=== PATIENT | male | born 1965 | race African-American/Black ===

== ENCOUNTER 2017-03-21 10:11 | Day surgery (SDC) | payer BC ==
[~2017-03-21] VITALS: Ht 188 cm; Wt 106.2 kg
[~2017-03-21 10:11] MED LIST: LISI-360 PO
[2017-03-21] MEDS ORDERED: IOHEXOL 350 MG/ML 50 ML BTL (for Cath Lab) OTHER ONE (10:12)
[2017-03-21 10:52] VITALS: BP 159/101; PULSE 58; RESP 18; TEMP 97.8; O2SAT 99
[2017-03-21] MEDS ORDERED: ASPIRIN 81 MG CHEW TAB PO SCH (11:00)
[2017-03-21 11:14] LABS: AUTOMATED NEUTROPHIL # 3.8 TH/MM3 (1.8-7.7); BASOPHIL # 0.1 TH/MM3 (0-0.2); BASOPHIL % 1.2 % (0.0-2.0); EOSINOPHIL # 0.4 TH/MM3 (0-0.4); EOSINOPHIL % 5.4 % (0.0-4.0); HEMATOCRIT 48.2 % (39.0-51.0); HEMO FLAGS DIFF FINAL; LYMPH % 36.5 % (9.0-44.0); LYMPHOCYTE # 2.7 TH/MM3 (1.0-4.8); MEAN CELL VOLUME 93.1 FL (80.0-100.0); MEAN CORPUSCULAR HEMOGLOBIN 31.6 PG (27.0-34.0); MEAN CORPUSCULAR HGB CONC 33.9 % (32.0-36.0); MONO % 6.6 % (0.0-8.0); NEUT % 50.3 % (16.0-70.0); PLATELET COUNT 189 TH/MM3 (150-450); RED BLOOD COUNT 5.18 MIL/MM3 (4.50-5.90); RED CELL DISTRIBUTION WIDTH 12.9 % (11.6-17.2); WHITE BLOOD COUNT 7.5 TH/MM3 (4.0-11.0)
[2017-03-21] MEDS ORDERED: ASPI-516 CHEW (11:19)
[2017-03-21] MEDS ORDERED: ACYC800T PO (11:19)
[2017-03-21] MEDS ORDERED: LISI-515 PO (11:19)
[2017-03-21] MEDS ORDERED: ISOS30TA3 PO (11:19)
[2017-03-21] MEDS ORDERED: IBUP1TAB7 PO (11:19)
[2017-03-21 11:23] LABS: APTT (PATIENT) 26.3 SEC (24.3-30.1); PROTHROMBIN TIME - PATIENT 11.1 SEC (9.8-11.6)
[2017-03-21 11:31] LABS: BICARBONATE 27.2 MEQ/L (21.0-32.0)
[2017-03-21] MEDS ORDERED: HEPARIN-NS/PF INJ 500 ML ONE (14:03)
[2017-03-21] MEDS ORDERED: MIDAZOLAM HCL 2 MG/2 ML VIAL ONE (14:17)
--- NOTE | 2017-03-21 14:58 | CATHPROC ---
[facility] HIS Report Study Information Study Number Admission Scheduled Start Study Start [id number] Mar 21 2017 10:11AM 03/21/2017 Mar 21 2017 2:01PM [place] [facility] Cardiac Catheterization Admit Source Facility Department Other [facility] Physician and Clinical Staff Initial Tan Wei Dry Room Operator Manuel Spain,GEORGE Recorder Sherice Swanson,RT(R) (BS) Scrub Toya ToledoRT(R) Procedures Performed Procedure Location (Site) Vessel Name Coronary Angiograms LCA Left Coronary Coronary Angiograms RCA Right Coronary LV Gram-hand inj. LV LV Ventricle Equipment Time Train System Operator Description Size Mfg Part Number Used/Scraped CATHETER, FR5 SWAN MCKAYLA 14:18 [employer] FR 5 [id number] *[id number] Used MONITOR TRANSDUCER, TRUWAVE [id number] 14:10 CARSON RASMUSSEN * Used W/STOCKCOCK *[id number] [id number] *[id number] [id number] *[id number] 14:18 [employer] PACK, CCL CUSTOM * Used *[id number] 14:10 [employer] PACER PEN, SKIN DUAL W/ RULER * Used *[id number] 14:18 [employer] MEDICAL SHEATH, FR5.5 PRELUDE 11CM FR 5.5 Used 038ACT# [id number] 14:18 [employer] MEDICAL WIRE, 3MMJ .035 180CM 180CM Used *[id number] 14:18 NAMIC MANIFOLD, 4 PORT * Used *[id number] 14:18 [employer] OMNIPAQUE, 350 MG, 150ML 150ML [id number] Used 14:10 [employer]ED OMNIPAQUE, 350 MG, 150ML 150ML [id number] Used [id number] 14:18 [employer],WARM AIR CCL * Used *[id number] 14:10 TERUM[employer] MEDICAL SHEATH, FR4 TERUMO (10CM) FR 4 Used *[id number] History: Current Medications Medication Dosage/Unit Route Frequency Last Date/Time Taken ASA NTG Patch History: Allergies Allergy Reaction No Known Allergies History: Risk Factors Family History of Hypertension Dyslipidemia Previous [facility] Previous Heart Failure Premature CAD Yes No No No No Prior Valve Prior PCI Prior CABG Surgery No No No Cerebrovascular Peripheral Artery Chronic Lung On Dialysis Diabetes Disease Disease Disease No No No No No History: Stress Tests Stress or Imaging Studies Performed Yes Standard Exercise Stress Test No Stress Echo No Stress Test SPECT Stress Test SPECT Result Yes Indeterminant Stress Test CMR No Cardiac CTA Coronary Calcium Score No No History: Other Current Smoker Method Packs a Day Years Used Pack Years Yes Cigarettes 1 33 33 Labs Hgb (g/dl) Hct (%) WBC (l/cumm) Platelets (thousands) 11.60-17.00 35.00-51.00 4.00-11.00 150.00-450.00 16.4 48.2 7.5 189 Glucose (mg/dl) BUN (mg/dl) Creatinine (mg/dl) BUN:Creatinine (1:x) 74.00-106.00 7.00-18.00 0.50-1.30 10.00-20.00 86 15 0.8 18.8 Na (meq/l) K (meq/l) 136.00-145.00 3.50-5.10 139 4 INR (PTT:PT) 0.90-1.10 1 CPK-MB (ng/ML) 0.50-3.60 Not Drawn Medication Medication Total Dose (Bolus/Oral) Medication Total Dosage/Unit 1% XYLOCAINE 20 mL FENTANYL 25 mcg VERSED 1 mg Medications (Bolus/Oral) Medication Time Given Dosage/Unit Administered By Reason VERSED 03/21/2017 2:20:57 PM 1 mg Manuel Spain 1 mg VERSED given in lab by Manuel Spain, GEORGE in Left Antecubital via Peripheral IV. 1% XYLOCAINE 03/21/2017 2:23:20 PM 20 mL Tan Florence 20 mL 1% XYLOCAINE given in lab by Tan Florence in Right Groin via Subcutaneous. FENTANYL 03/21/2017 2:25:01 PM 25 mcg Manuel Spain 25 mcg FENTANYL given in lab by Manuel Spain, GEORGE in Left Antecubital via Peripheral IV. Medication (Drip) Medication Time Given Dosage/Unit Concentration/Unit Diluent (ml) Solutio n IV Solutions 03/21/2017 2:02:18 PM 0 mL (IV) 500 NaCl .9 IV Solutions given in lab by Manuel Spain, GEORGE in Left Antecubital via Peripheral IV. Pump/Drip Flow = 30 ml/hr using NaCl .9. Initial Case Assessment Cardiovascular HR Rhythm NIBP 62 reg 150/95 Edema Present Skin color Skin None Normal Warm Dry Circulatory - Right Pulses Dorsalis Pedis Femoral Radial 2 2 2 Scale (0,1,2,3,4,d) Scale (0,1,2,3,4,d) Circulatory - Lower Extremities Color Lower Right Color Lower Left Normal Normal Neurological State Oriented to time-place- Alert Moves all extremities person Respiration - General Respiration Rate SpO2 (%) (B/min) 10 100 Chronological Log Time Study Chronological Log 13:55:38 Patient arrived via Bed. 13:55:45 Patient Name, D.O.B, / Armband Verified By R.N. 13:55:48 Consent signed by the physician and the patient and verified by the [facility] staff. Vitals capture started with the following parameters, Patient=Adult, Interval=5 min, Initial Brbvfayp=191 mmHg, 14:01:29 Deflation Rate=5 mmHg, Cuff placed on Left Arm 14:01:53 Pre-op and post- op instructions given; patient acknowledges understanding of instruction s. Verbal Stimulation=2 Physical Stimulation=2 Airway=~AIRWAY~ Respiration=2 TOTAL=8. (0=absent, 1 =limited, 14:01:54 2=present) 14:01:55 Presedation assessment performed by [facility] RN. 14:02:04 Patient has been NPO for More than 6Hrs. 14:02:05 Skin Breakdown none per pt 14:02:06 HR=65 bpm, CZJS=099/95 mmhg, DdZ3=582.0 %, Resp=8 B/min, Pain=0, Corey=10, Durán=2 14:02:06 Patient Warmer Placed on the Table. 14:02:15 [place]on Prominences Protected 14:02:17 A # 20 IV was noted in the Antecubital (left). Grade = 0 IV Solutions given in lab by Manuel Spain, GEORGE in Left Antecubital via Peripheral IV. Pump/Dri p Flow = 30 ml/hr using 14:02:18 NaCl .9. 14:02:19 History and physical on the chart or being dictated. Assessment: Initial Case, HR=62 BPM, Rhythm=reg, ASDP=783/95 mmhg, Edema=None, Color=Normal, Sk in = Warm, Dry Right Pulses: Cheikh Ped=2, Femoral=2, Radial=2 14:02:20 Lower Right Extremities: Color=Normal Lower Left Extremities: Color=Normal Neurological: State=Alert, Ox3, CONDE Respiration: Resp=10 B/min, JrX1=458 % 14:07:09 HR=59 bpm, RCFJ=454/88 mmhg, SpO2=99.0 %, Resp=11 B/min, Pain=0, Corey=10, Durán=2 14:08:53 Reference ECG taken 14:11:47 Bilateral groins prepped with 2% chlorhexidine, and draped after a 3 minute waiting time. 14:13:32 HR=64 bpm, QEKU=747/95 mmhg, FeK4=545.0 %, Resp=8 B/min, Pain=0, Corey=10, Durán=2 14:16:52 MD paged 14:17:46 HR=62 bpm, FXDE=091/97 mmhg, RhQ6=562.0 %, Resp=9 B/min, Pain=0, Corey=10, Durán=2 14:19:47 MD arrived. 14:20:57 1 mg VERSED given in lab by Manuel Spain, RN in Left Antecubital via Peripheral IV. 14:21:23 Pressure channel 1 zero failed. 14:21:47 Pressure channel 1 zeroed. 14:22:13 HR=62 bpm, VJOQ=704/91 mmhg, ZjP1=698.0 %, Resp=15 B/min, Pain=0, Corey=10, Durán=2 Time Out. Correct patient, correct procedure, correct physician, power injector not loaded with contrast with surgical 14:23:12 team present. Time Out Concurred by MD and individual staff in procedure. 14:23:18 Case Start 14:23:20 20 mL 1% XYLOCAINE given in lab by Tan Florence in Right Groin via Subcutaneous. 14:25:01 25 mcg FENTANYL given in lab by Manuel Spain, RN in Left Antecubital via Peripheral IV. 14:26:27 Access site was Right Femoral Artery. 14:26:42 A SHEATH, FR4 TERUMO (10CM) FR 4 was advanced into the Fem Art (right) using the Percutaneo us technique. 14:27:10 HR=63 bpm, XQJK=846/102 mmhg, SpO2=98.0 %, Resp=11 B/min, Pain=0, Corey=10, Durán=2 14:27:12 Saturation: Site=FA (Femoral Artery) , O2=98.3 %, Hgb=16.4 gm/dl, Condition=Condition 1. Us ed in calculation. 14:28:03 Access site was Right Femoral Vein. 14:28:14 A SHEATH, FR5.5 PRELUDE 11CM FR 5.5 was advanced into the Fem Vein (right) using the Percut aneous technique. 14:28:50 A CATHETER, FR5 SWAN MCKAYLA MONITOR FR 5 was inserted via Fem Vein (right) Recorded Pressure: PCW, HR=59, Condition=Condition 1 14:29:54 (Pulmonary Capillary Wedge) PCW Recorded Pressure: MPA, HR=57, Condition=Condition 1 14:30:14 (Main Pulmonary Artery) MPA 26/7/14 14:30:57 Saturation: Site=PA (Pulmonary Artery) , O2=78.6 %, Hgb=16.4 gm/dl, Condition=Condition 1. Used in calculation. Recorded Pressure: RV, HR=61, Condition=Condition 1 14:31:38 (Right Ventricle) RV 29/5 Recorded Pressure: RA, HR=55, Condition=Condition 1 14:31:57 (Right Atrium) RA 14:32:33 Saturation: Site=RA (Right Atrium) , O2=80.2 %, Hgb=16.4 gm/dl, Condition=Condition 1. Used in calculation. 14:32:43 [place] Mckayla Catheter Removed 14:32:52 HR=56 bpm, IJGC=914/97 mmhg, SpO2=98.0 %, Resp=23 B/min, Pain=0, Corey=10, Durán=2 A JR 4.0 INFINITI CATHETER FR 4 was advanced over a wire. OMNIPAQUE, 350 MG, 150ML 150ML was us ed for 14:33:37 injections. Recorded Pressure: LV, HR=55, Condition=Condition 1 14:34:03 (Left Ventricle) LV 134/2/8 14:34:06 The LV was manually injected with 8 cc's and visualized. OMNIPAQUE, 350 MG, 150ML 150ML use d. Recorded Pressure: LV, Ao, HR=57, Condition=Condition 1 14:34:23 (Left Ventricle) LV 139/1/6, (Aorta) Ao 137/79/103 14:35:05 The RCA was injected and visualized at various angles. OMNIPAQUE, 350 MG, 150ML 150ML used . 14:35:31 Catheter was removed A JL 4.0 INFINITI CATHETER FR 4 was advanced over a wire. OMNIPAQUE, 350 MG, 150ML 150ML was us ed for 14:36:03 injections. 14:37:09 The LCA was injected and visualized at various angles. OMNIPAQUE, 350 MG, 150ML 150ML used . 14:37:59 HR=57 bpm, HNYE=849/88 mmhg, SpO2=97.0 %, Resp=17 B/min, Pain=0, Corey=10, Durán=2 14:38:09 Catheter was removed 14:38:20 Catheter(s) removed without difficulty 14:38:48 No case complications noted. 14:38:54 Bedside Report will be given. 14:39:00 A Left and Right Heart Cath was performed. 14:39:09 DOCU called. Spoke to Jd. Advised pt has artery and vein sheaths in. 14:42:03 Sterile dressing applied to site 14:42:39 HR=56 bpm, ESPM=705/76 mmhg, SpO2=99.0 %, Resp=10 B/min, Pain=0, Corey=10, Durán=2 14:47:45 Patient moved to [facility] End Study - Contrast Media Used In Study Contrast Total Opened (mL) Total Used (mL) Total Wasted (mL) Omnipaque 25 25 0 End Study - Maximum Contrast Load Max Contrast Load (mL) 662.5 End Study - Radiation Exposure Fluoro Time (minutes) 2.5 End Study - Patient Disposition Complications Transferred To Interventional Outcome No [facility] Holding No attempt made
[2017-03-21] MEDS ORDERED: MISC INFORMATION XX ONE (15:15)
[2017-03-21] MEDS ORDERED: SODIUM CHLORIDE 0.9% FLUSH 10 ML FLUSH IV FLUSH PRN (15:15)
--- NOTE | 2017-03-21 16:59 | MA ---
cc: CHEN COOPER M.D. DATE: 03/21/2017 PROCEDURE PERFORMED Right heart catheterization, left heart catheterization, left ventriculography, coronary angiography. INDICATION New onset chest pain at rest, unstable angina, [place] Cardi[employer] Society Class IV angina, cardiomyopathy, moderate size fixed defect in the posterior wall, inferior wall and apex, ejection fraction 44% and cardiomyopathy. PROCEDURAL SUMMARY The patient was brought to the cardiac catheterization laboratory, prepped and draped in the usual sterile fashion. 10 cc of 1% lidocaine was used to locally anesthetize the right inguinal area. A 4 Mexican sheath was placed in the right common femoral artery, a 5 Mexican sheath placed in the right common femoral vein. Right heart catheterization was performed first with the following findings: Pulmonary capillary wedge pressure 9/10-6. PA pressure 26/7-14. RV pressure 29/2-5. RA pressure 7/3-2. Cardiac output by Mitesh is 6.6 liters per minute. Cardiac index by Mitesh is 2.8 liters per minute per meter squared. Sats on room air: FA sat 98.3%. PA sat 78.6%. RA sat 80.2%. Left heart catheterization was then performed with a 4 Mexican JR4 and JL4 catheters with the following findings: LV pressures 130/2-4. Ejection fraction 50-55%. The right coronary is dominant, has a larson's crook in the proximal segment, has a slightly inferior takeoff. There is mild diffuse disease and slight ectasia in the proximal segment up to 10% angiographically. Also note the right PDA has a proximal 30-40% stenosis. The left main coronary is short, has no significant disease angiographically. The left circumflex has mild disease in the proximal segment up to 10-20% angiographically. The first obtuse marginal vessel is a small to medium size vessel with no significant disease angiographically. The second obtuse marginal vessel is a medium size vessel, tortuous, with no significant disease angiographically. The left circumflex vessel terminates into three small posterolateral arteries with no significant disease angiographically. The LAD is non-transapical, has mild disease in the prox-mid segment up to 10-20% angiographically. It decreases from a 3.5 mm vessel to a 2.25 mm vessel after the first diagonal artery with minimal luminal irregularities in the midsegment up to 10% angiographically. The first diagonal artery is a medium to large size vessel approaching the apex with no significant disease angiographically. CONCLUSIONS 1. Mild to moderate three-vessel coronary artery disease in a right-dominant system as detailed above. 2. Normal to low normal LV systolic function at 50-55%. 3. Normal right heart catheterization pressures as detailed above. RECOMMENDATIONS 1. Recommend medical management of coronary artery disease. 2. I have counseled the patient myself personally to stop smoking. 3. Recommend starting a baby aspirin 81 mg daily. 4. Will check fasting lipids as a outpatient and treat to NCCN guidelines. MD ROLY Britt/YANET /3:00 PM /4:27 PM
[2017-03-21] MEDS ORDERED: SODIUM CHLORIDE 0.9% FLUSH 10 ML FLUSH IV FLUSH SCH (21:00)
[2017-03-22] MEDS ORDERED: INFLUENZA VIRUS VACCINE (QUADRIVALENT) 0.5 ML SYR IM ONE (10:00)
--- NOTE | 2017-03-22 15:17 | EKG ---
Date Performed: 03/21/2017 Time Performed: 10:57:26 PTAGE: 51 years EKG: Sinus bradycardia. Inferior and lateral ST elevation - possible early repolarization Border line ECG NO PREVIOUS TRACING DOCTOR: Emy Rocha Interpretating Date/Time 03/22/2017 15:17:06
== END 2017-03-21 17:15 | disposition home or self-care (01) ==
LOC: HDOC 10:11 → HDIC 10:12 → HDOC 17:15
PROVIDERS: ATTEND Internal Medicine Interventional Cardiology
DX: I25.110 Atherosclerotic heart disease of native coronary artery with unstable angina pectoris (principal); I42.9 Cardiomyopathy, unspecified; I10 Essential (primary) hypertension; F17.200 Nicotine dependence, unspecified, uncomplicated
CPT/HCPCS: 80048; 82810; 85025; 85610; 85730; 93005; 93460; 99152; C1769; C1893; J1644; J2250; J3010; Q9967